=== PATIENT | female | born 1960 | race Caucasian/White ===

== ENCOUNTER 2018-03-26 10:01 | Emergency (ER) | payer OTHER, SELFPAY ==
[2018-03-26 10:02] VITALS: BP 175/86; PULSE 78; RESP 16; TEMP 37; O2SAT 97; BMI 26.2
--- NOTE | 2018-03-26 10:13 | RAD_ITS ---
STUDY: X-RAY CHEST REASON FOR EXAM: Female, 58 years old. Chest pain. TECHNIQUE: PA and lateral views of the chest. COMPARISON: Prior comparison studies are not available for review at this time. FINDINGS: The lungs are clear and expanded. There is no demonstrated pleural abnormality. Normal size heart. Normal mediastinum and bhavani. Normal visualized pulmonary arteries. There is atherosclerotic tortuosity of the aortic arch and descending thoracic aorta. There are mild degenerative changes of the visualized thoracic spine. Normal visualized ribs, clavicles, and shoulders. There is no demonstrated abnormality of the visualized soft tissue structures of the upper abdomen. RAD/Chest PA and Lateral IMPRESSION: No active pulmonary disease. Electronically Signed: Vimal Ho MD at 11:18 EST Tel , Service support ,
--- NOTE | 2018-03-26 10:13 | EKG12_ITS ---
Test Reason : NUMBNESS Blood Pressure : / mmHG Vent. Rate : 075 BPM Atrial Rate : 075 BPM P-R Int : 190 ms QRS Dur : 090 ms QT Int : 400 ms P-R-T Axes : 057 035 059 degrees QTc Int : 446 ms Normal sinus rhythm Normal ECG Confirmed by MARY CASTRO, CHRISTOPHER ([id number]), features editor SEAN NIEVES ([id number] on 03/28/2018 4:19:33 PM Referred By: CHACHO Confirmed By:CHRISTOPHER HERNANDEZ MD
[2018-03-26] MEDS: Aspirin 81 MG TAB.CHEW 324 MG PO (10:18)
[2018-03-26 10:19] VITALS: BP 138/71; PULSE 79; RESP 17; O2SAT 98
--- NOTE | 2018-03-26 10:25 | ED.DCSUM_ITS ---
- ER Visit Summary Date of Service: 03/26/18 Chief Complaint: Right arm pain and chest pain History of Present Illness: The patient is a 58 F presenting for evaluation secondary to right arm discomfort and chest pain. Patient reports that about 1 in the morning she started to notice that she was having pain in her right arm and tingling in her fingers on the right side. Patient states this is been a continuous sensation since then, is somewhat worse with moving, but is also been associated with an abnormal feeling in her right chest. Patient denies that she has been having any lightheadedness shortness of breath or diaphoresis, but she states that when she exerts herself she starts to have some dyspepsia and frequently burps. She is never had any prior similar episodes in the past. She denies any weakness or visual changes associated with this. Patient denies any history of hypertension diabetes high cholesterol smoking or premature family history. She denies any PE risk factors. Physical Examination: Vital signs are within normal limits except for blood pressure initially elevated 175/80, but immediately came down to 138/71, patient is afebrile. General: Patient is well-nourished well-developed and in no acute distress. Head: Normocephalic, atraumatic Eyes: Pupils equal round and reactive bilaterally, extra occular motion intact bialterally ENT: Moist mucous membranes Neck: Supple, no lymphadenopathy, no JVD, no meningismus CVS: Heart regular rate and rhythm, no murmurs, rubs or gallops, radial pulses 2+ bilaterally Resp: Respirations nondistressed, lung sounds clear bilaterally Abdomen: Soft, nontender, nondistended, no palpable masses, normal bowel sounds Back: Nontender Extremities: Nontender, atraumatic, active full range of motion, no peripheral edema Skin: warm, no rashes, no petechia Neuro: Alert and oriented x 4, CN 2-12 intact except for a chronic left-sided abducens nerve palsy, no lateralizing neurological defecits Psyc: Normal affect Test Results: EKG shows sinus rhythm at [address] segments normal T waves no evidence of acute ischemia or arrhythmia. CBC chemistry and troponin are negative. PA and lateral chest x-ray by my personal review and radiology is negative. Emergency Department Course and Treatment: Patient presented for evaluation secondary to right arm pain and some chest discomfort. There was some concern for the possibility of an anginal equivalent so a chest pain workup was obtained. It was negative as noted above. Patient's heart score is 3, she had some improvement with administration of aspirin in the emergency department. Had a discussion with the patient about staying in the hospital for stress testing versus follow-up with her primary care physician for arrangement of outpatient stress testing. She has a elderly mother with Alzheimer's, and does not feel that she is able to be admitted. I do believe the discharge is appropriate given her low risk heart score, but I encouraged her that she needs to follow-up for outpatient stress testing. She voiced understanding of this. Patient was discharged in stable condition. Disposition: Discharge Impression: 1. Chest pain with right arm pain This note was generated with [employer] dictation software. It may contain incorrect words, spelling, and punctuation that were not noted in review of the chart prior to signing ED Disposition - Plan for ED Patient: Disposition: Home or Assisted Living Chief Complaint: Chest Pain Diagnosis: Chest pain Instructions: ED Chest Pain NonCardiac Referrals: John Wood PA [Primary Care Provider] - 1 Day
[2018-03-26 10:28] LABS: Absolute Lymphocyte Count 2.06 X10^3/ul (0.83-4.51); Absolute Neutrophil Count 2.1 X10^3/uL (2.0-7.7); Basophil# 0.05 X10^3/uL; Eosinophil# 0.31 X10^3/uL; Hematocrit 42.1 % (37-47); Hemoglobin 14.1 g/dl (12.0-15.0); Lymphocyte # 2.06 X10^3/ul (4.0); Lymphocyte % 39.7 % (19-41); Mean Corp Hgb Conc 33.5 g/gl (32-36); Mean Corpuscular Hgb 30.7 pg (27.0-32.0); Mean Corpuscular Volume 91.7 fL (81-99); Mean Platelet Vol. 9.8 fl (6.2-12.0); Monocyte# 0.68 X10^3/uL; Monocyte% 13.1 % (0-10); Neutrophil # 2.08 X10^3/uL (2.7-7.7); POSITIVE COUNT NO; POSITIVE DIFFERENTIAL NO; POSITIVE MORPHOLOGY NO; Platelet Count 241 K/mm3 (150-450); RBC Distribution Width CV 12.6 % (11.6-14.6); RBC Distribution Width SD 41.4 fl (35.1-43.9); Red Blood Count 4.59 M/mm3 (4.2-5.4); White Blood Count 5.2 K/mm3 (4.4-11.0)
[2018-03-26 10:45] LABS: Anion Gap 9 (5-15); BUN 21 mg/dL (7-18); BUN/Creat Ratio 31.5 RATIO (10-20); Calcium,Total 8.5 mg/dL (8.5-10.1); Chloride 107 mmol/L (98-107); Creatinine, Serum 0.67 mg/dL (0.55-1.02); EST Glomerular Filtration Rate 96 mL/min (>60); Est Glom Filt Rate - Afr Amer 116 mL/min (>60); Estimated Creatinine Clearance 93.32 ml/min; Glucose 81 mg/dL (74-106); Potassium 3.7 mmol/L (3.5-5.1); Sodium Level 143 mmol/L (136-145)
[2018-03-26 11:03] VITALS: BP 157/77; PULSE 58; RESP 14; O2SAT 99
[2018-03-26 11:40] VITALS: BP 149/75; PULSE 67; RESP 22; O2SAT 99
== END 2018-03-26 11:43 | disposition home or self-care (01) ==
PROVIDERS: Emergency Provider Emergency Medicine; Family Provider Physician Assistant; PCP Physician Assistant
DX: R07.9 Chest pain, unspecified (principal); M79.601 Pain in right arm
CPT/HCPCS: 71046; 80048; 84484; 85025; 93005; 99284

== ENCOUNTER → 2020-01-18 17:08 | Outpatient (CLI) | payer OTHER, SELFPAY | PROVIDERS: PCP Physician Assistant; Referring Provider Physician Assistant; Visit Provider Physician Assistant | DX: Z20.828 Contact with and (suspected) exposure to other viral communicable diseases (principal) | CPT/HCPCS: 87635; C9803; U0003 ==

== ENCOUNTER 2020-12-11 20:32 | Emergency (ER) | payer OTHER, SELFPAY ==
[2020-12-11 20:33] VITALS: BP 174/87; PULSE 76; RESP 18; TEMP 35.8; O2SAT 98; BMI 27.8
--- NOTE | 2020-12-11 22:27 | US_ITS ---
STUDY: VENOUS DOPPLER ULTRASOUND - LEFT LOWER EXTREMITY REASON FOR EXAM: Female, 60 years old. LT LATERAL THIGH SWELLING TECHNIQUE: Ultrasound evaluation of the deep vein system to include clemens-scale imaging and compression was performed. Clemens-scale imaging and Doppler sonographic evaluation, including duplex spectral analysis and qualitative color flow sonography, was performed. COMPARISON: None. FINDINGS: Common Femoral Vein: Normal compression, spontaneity and augmentation. Normal color Doppler. Common Femoral Vein/Greater Saphenous Junction: Normal compression Femoral Proximal: Normal compression. Femoral Middle: Normal compression, spontaneity and augmentation. Normal color Doppler. Femoral Distal: Normal compression. Popliteal Vein: Normal compression, spontaneity and augmentation. Normal color Doppler. Posterior Tibial Vein: Normal compression. Peroneal Vein: Normal compression. US/Venous Duplex Imag/Limited/Uni IMPRESSION: Limited sonographic evaluation for deep venous thrombosis. Some of the venous structures were only evaluated for compression. Within the limitations of the study there is no deep venous thrombosis identified. Soft tissue swelling. Electronically Signed: Bro Corona MD at 23:08 EDT Tel , Service support ,
--- NOTE | 2020-12-11 23:32 | EX.ED.DYSGE1 ---
HPI History of Present Illness Chief Complaint: Lower Extremity Injury Narrative Narrative: 60-year-old female presenting with left lower extremity swelling which has been progressive over the last 2 weeks. Patient states that she previously had a bite on her left ankle which became infected. This is resolved. Since then she noticed progressive knee and hip pain as she ambulated to the day. In the mornings this feels fine. She does notice swelling in the left lower extremity over the course of the day as well. She denies any injury that she knows of. PFSH PFSH Home Medications multivitamin 1 tab PO DAILY 12/11/20 [History Last Taken Unknown] vit [id number] [Bioflex] 1 tab PO DAILY 12/11/20 [History Last Taken Unknown] Allergy/AdvReac Type Severity Reaction Status Date / Time Penicillins Allergy Unknown Verified 12/11/20 20:32 Surgical History History of appendectomy Social History Smoking Status: Former smoker ROS ROS ED Constitutional Constitutional ED: Denies chills or fever(s) Eyes Eyes: Denies blurry vision or diplopia ENT ENT ED: Denies rhinorrhea or sore throat Cardiovascular Cardiovascular: Denies chest pain or palpitations Respiratory/Chest Respiratory/Chest: Denies cough, dyspnea or sputum Gastrointestinal Gastrointestinal: Denies abdominal pain or nausea Genitourinary Genitourinary ED: Denies dysuria or hematuria Musculoskeletal Musculoskeletal: Reports other Details: Left knee pain and left lower extremity swelling ; Denies back pain Neurologic Neurologic: Denies headache(s) or paresthesias EXAM Physical Exam Const Vital Signs: 12/11/20 20:33 Temperature 96.5 F L Temperature Source Temporal Pulse Rate 76 Respiratory Rate 18 Blood Pressure 174/87 H Blood Pressure Mean 116 Pulse Ox 98 Oxygen Delivery Method Room Air Positive well nourished General Appearance ED: NAD HEENT Reports moist mucous membranes Negative for trauma Eyes PERRL and EOMs intact bilaterally Resp normal respiratory effort Cardio regular rate and regular rhythm Extremity Extremity Narrative: Left lower extremity from the calf downward appears to be slightly larger than the right side however there is no significant edema. No cords palpated. Left knee has no tenderness to palpation. She has full range of motion of the left knee. No ligament laxity is noted. Compartments are soft. Neuro oriented x3 and CN's II-XII intact bilaterally Sensorium / Orientation: alert Skin Skin Narrative: Superficial abrasion to left lateral ankle just above the lateral malleolus. No cellulitic changes. No crepitance. MDM MDM MDM Narrative Medical decision making narrative: Patient presenting with unilateral leg swelling on the left. She has no history of DVT and no risk factors. I did obtain a DVT study of the left lower extremity which is negative for DVT. Patient counseled on findings. Patient does not have any pain in her knee and does not wish to have it x-rayed even though she states that her knee aches throughout the day when she walks. Patient counseled to use ice, heat, compression, alternate Tylenol ibuprofen for pain. She will follow-up with her PCP ensure resolution. Impression: 1. Left lower leg swelling Radiography Diagnostic Testing: Radiology Impression Venous Duplex 12/11/20 22:27 IMPRESSION: Limited sonographic evaluation for deep venous thrombosis. Some of the venous structures were only evaluated for compression. Within the limitations of the study there is no deep venous thrombosis identified. Soft tissue swelling. Electronically Signed: Bro Corona MD at 23:08 EDT Tel , Service support , Discharge Plan Triage Chief Complaint: Lower Extremity Injury ED Provider: Saul Funk Dx/Rx/DC Orders Instructions: ED Peripheral Edema, Unilateral Prescriptions: No Action multivitamin Tablet 1 tab PO DAILY RF: 0 Bioflex 314-24-21-40 mg Tablet 1 tab PO DAILY RF: 0 Primary Care Provider: John Wood Referrals: John Wood PA [Primary Care Provider] - Disposition Disposition: Home, Self Care Discharge Date/Time: 12/11/20 23:34
== END 2020-12-11 23:34 | disposition home or self-care (01) ==
PROVIDERS: Emergency Provider Student in an Organized Health Care Education/Training Program; PCP Physician Assistant
DX: R60.0 Localized edema (principal); Z87.891 Personal history of nicotine dependence
CPT/HCPCS: 93971; 99282